=== PATIENT | male | born 1985 | race Two or more races ===

== ENCOUNTER 2016-09-08 22:19 | Emergency (ER) | payer MEDICAID ==
[~2016-09-08] VITALS: Ht 175.3 cm; Wt 95.3 kg
[2016-09-08] MEDS ORDERED: NEXIUM2.5 MG ORAL (22:26)
[2016-09-08 22:41] VITALS: BP 138/86
[2016-09-08] MEDS ORDERED: Famotidine 20 MG/ 2ML VIAL IVP ONE (23:00)
[2016-09-08] MEDS ORDERED: Mylanta II UD 30ml ORAL ONE (23:00)
[2016-09-08 23:30] VITALS: BP 148/94
--- NOTE | 2016-09-09 00:09 | Emergency Room Report ---
History of Present Illness General Chief Complaint: Chest Pain Source: Patient, EMS Present Illness HPI 30YOM BIBEMS with 2 weeks substernal chest pain, radiating to back. Worse tonight after dinner. Reproducible. History of GERD on nexium for last month. No DM, HTN, HLD. 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 Denies current drug use, cocaine. Father had heart attack when he was "less than 40." No assoc nausea/vomiting/SOB. No fever/chills or cough. CP not worse with coughing or with deep breaths. No history of DVT, PE. No leg swelling/calf pain. Went to outside ER last week for same. States had "blood work and CXR and ECG " and wad discharged. Allergies: Coded Allergies: No Known Allergies (Unverified , 09/08/16) Patient History Past Medical History: none Past Surgical History: none Pertinent Family History: [place] Social History: Reports: alcohol use, drug use Immunizations: UTD Reviewed Nursing Documentation: PMH: Agreed, PSxH: Agreed Nursing Documentation-PMH Past Medical History: No History, Except For Hx Gastrointestinal Problems: Yes - GERD Review of Systems All Other Systems: negative except mentioned in HPI Physical Exam Vital Signs Date Time Temp Pulse Resp B/P Pulse Ox O2 Delivery O2 Flow Rate FiO2 09/08/16 22:20 96 18 158/109 100 Room Air 09/08/16 22:41 98.0 Sp02 EP Interpretation: reviewed, normal General Appearance: normal inspection, well appearing, no apparent distress, alert, GCS 15, non-toxic Head: normocephalic, atraumatic Eyes: bilateral eye EOMI, bilateral eye PERRL ENT: normal ENT inspection, hearing grossly normal, normal voice Neck: normal inspection, full range of motion, supple, no bony tend Respiratory: normal inspection, lungs clear, normal breath sounds, no respiratory distress, no retraction, no wheezing Cardiovascular #1: regular rate, rhythm, no edema Gastrointestinal: normal inspection, normal bowel sounds, non tender, soft, no guarding, no hernia Genitourinary: no CVA tenderness Musculoskeletal: normal inspection, back normal, normal range of motion, Mary Lou' s Sign negative Neurologic: normal inspection, alert, oriented x3, responsive, research/program director III-XII nml as tested, motor strength/tone normal, speech normal Psychiatric: normal inspection, judgement/insight normal, mood/affect normal Skin: normal inspection, normal color, no rash Lymphatic: normal inspection Medical Decision Making Diagnostic Impression: Primary Impression: Chest pain Qualified Codes: R07.9 - Chest pain, unspecified ER Course Labs: Normal H&H. No leuks. Troponin 0. Mild HypoK Utox: Negative CXR neg for PTX, PNA Improved with GI Cocktail and IV H2 chitra Pain not present on repeat exam A: - unlikely ACS given 2 weeks duration - Unlikely PE. PERC negative - Possibly related to GERD EKG Diagnostic Results Rate: normal Rhythm: NSR ST Segments: no acute changes ASA given to the pt in ED: No Rhythm Strip Diag. Results EP Interpretation: yes Rate: 72 Rhythm: NSR, no PVC's, no ectopy Chest X-Ray Diagnostic Results EP Interpretation: Yes Findings: no consolidation, no effusion, no pneumothorax, no acute cardiopulmonary disease Number of Views: 1 Last Vital Signs Date Time Temp Pulse Resp B/P Pulse Ox O2 Delivery O2 Flow Rate FiO2 09/08/16 23:30 98.0 70 14 148/94 99 Room Air Status: improved Disposition: HOME, SELF-CARE Referrals: [facility],REFERRING (PCP) ALEX CARLSON M.D. Sep 09, 2016 00:09
[2016-09-09 00:14] LABS: BASOPHILS % (AUTO) 1.4 % (0.0-2.0); EOSINOPHILS % (AUTO) 2.3 % (0.0-3.0); LYMPHOCYTES % (AUTO) 27.4 % (20.0-45.0); MEAN CORPUSCULAR HEMOGLOBIN 27.9 PG (27.0-31.0); MEAN CORPUSCULAR HGB CONC 35.1 G/DL (32.0-36.0); MEAN CORPUSCULAR VOLUME 80 FL (80-99); MEAN PLATELET VOLUME 7.7 FL (6.5-10.1); MONOCYTES % (AUTO) 7.4 % (1.0-10.0); NEUTROPHILS % (AUTO) 61.5 % (45.0-75.0); PLATELET COUNT 314 K/UL (150-450); RED BLOOD COUNT 4.85 M/UL (4.70-6.10); RED CELL DISTRIBUTION WIDTH 11.7 % (11.6-14.8); WHITE BLOOD COUNT 7.7 K/UL (4.8-10.8)
[2016-09-09 00:28] LABS: TROPONIN I < 0.30 ng/mL (<=0.30)
[2016-09-09 00:31] LABS: ALANINE AMINOTRANSFERASE 14 U/L (3-41); ALBUMIN/GLOBULIN RATIO 1.3 (1.0-2.7); ANION GAP 14 (5-15); ASPARTATE AMINO TRANSFERASE 16 U/L (5-40); CALCIUM 9.1 mg/dL (8.6-10.2); CARBON DIOXIDE 24 mEQ/L (20-30); CHLORIDE 100 mEQ/L (98-107); CREATININE 0.8 mg/dL (0.7-1.2); GLOMERULAR FILTRATION RATE > 60 mL/min (>60); HEMOLYSIS 7; POTASSIUM 3.3 mEQ/L (3.4-4.9); SODIUM 138 mEQ/L (135-145); TOTAL PROTEIN 7.2 g/dL (6.6-8.7)
[2016-09-09 00:41] LABS: CKMB 3.9 ng/mL (< 6.7)
[2016-09-09] MEDS ORDERED: PEPCID20 MG ORAL (00:58)
[2016-09-09] MEDS ORDERED: NEXIUM40 MG ORAL (01:02)
[2016-09-09 01:20] VITALS: BP 133/89
[2016-09-09 01:21] VITALS: BP 133/89
--- NOTE | 2016-09-09 12:04 | Diagnostic Imaging Report ---
Indication: Chest pain Technique: Single portable AP view of the chest. Findings: Comparison: None. The bones and extra pulmonary soft tissues, cardiomediastinal silhouette, pulmonary vasculature and parenchyma, and pleural surfaces are unremarkable. IMPRESSION: Negative portable AP chest.
--- NOTE | 2016-09-09 13:46 | Cardiology Report ---
APPROVED REPORT EKG Measurement Heart [id number] Normal sinus rhythm with sinus arrhythmia Abnormal ECG
== END 2016-09-09 01:22 | disposition home or self-care (01) ==
LOC: EDBD 22:19 → EMR 23:43
DX: R07.9 Chest pain, unspecified (principal); K21.9 Gastro-esophageal reflux disease without esophagitis; Z87.898 Personal history of other specified conditions; F10.10 Alcohol abuse, uncomplicated; F15.10 Other stimulant abuse, uncomplicated; Z82.49 Family history of ischemic heart disease and other diseases of the circulatory system
CPT/HCPCS: 36415; 71010; 80053; 80300; 82550; 82553; 84484; 85025; 93005; 96374; 99283; S0028